=== PATIENT | male | born 1975 | race Two or more races ===

== ENCOUNTER 2021-07-11 14:25 | Emergency (ER) | payer OTHER ==
[~2021-07-11] VITALS: Ht 165.1 cm; Wt 92.1 kg
--- NOTE | 2021-07-11 14:59 | NUR ---
TO ER BED 3. BIB RA 80 FROM [facility]STRUCTION S[facility], PIECE OF METAL FELL ON HIS HEAD,NO LOC C/O DIZZINESS AND PAIN. PT IS A&OX4, ATTACHED TO MONITOR, VITALS ARE STABLE. AWAITING MD ORDERS.
[2021-07-11] MEDS ORDERED: ACETAMINOPHEN ES 500 MG TABLET ONE (15:09)
[2021-07-11] MEDS ORDERED: ACETAMINOPHEN ES 500 MG TABLET PO ONE (15:30)
[2021-07-11] MEDS ORDERED: IBUP-1957 PO (16:04)
[2021-07-11] MEDS ORDERED: MECLIZINE HCL 25 MG TABLET ONE (16:24)
[2021-07-11] MEDS ORDERED: MECLIZINE HCL 25 MG TABLET PO ONE (16:30)
[2021-07-11] MEDS ORDERED: ONDANSETRON 4 MG TAB.RAPDIS ONE (16:40)
--- NOTE | 2021-07-11 16:48 | NUR ---
Patient discharged to home in stable condition. Written and verbal after care instructions given. Patient verbalizes understanding of instruction.IV removed. Catheter intact and site benign. Pressure and 4x4 applied to site. No bleeding noted.
[2021-07-11 16:49] VITALS: BP 132/74
== END 2021-07-11 16:49 | disposition home or self-care (01) ==
LOC: ER 14:28
DX: S09.90XA Unspecified injury of head, initial encounter (principal); I10 Essential (primary) hypertension; Z60.2 Problems related to living alone; Z79.899 Other long term (current) drug therapy; X58.XXXA Exposure to other specified factors, initial encounter; Y93.89 Activity, other specified; Y92.69 Other specified industrial and construction area as the place of occurrence of the external cause; Y99.8 Other external cause status
CPT/HCPCS: 70450; 72125; 99284; J8597; Q0162

== ENCOUNTER 2021-07-16 08:53 | Emergency (ER) | payer OTHER ==
[~2021-07-16] VITALS: Ht 170.2 cm; Wt 93.0 kg
[~2021-07-16 08:53] MED LIST: IBUP-1957 PO
[2021-07-16 09:10] VITALS: BP 152/78
[2021-07-16] MEDS ORDERED: ONDANSETRON 4 MG TAB.RAPDIS ONE (09:29)
[2021-07-16] MEDS ORDERED: ONDANSETRON 4 MG TAB.RAPDIS SL ONE (09:30)
--- NOTE | 2021-07-16 09:30 | NUR ---
Foot soaked and cleaned by patient.
[2021-07-16 09:41] LABS: BASOPHILS % (AUTO) 0.4 % (0.0-2.0); EOSINOPHILS % (AUTO) 0.5 % (0.0-6.0); HEMATOCRIT 51 % (39-51); HEMOGLOBIN 17.4 g/dL (13.5-17.5); LYMPHOCYTES % (AUTO) 19.3 % (20.0-44.0); MEAN CORPUSCULAR HGB CONC 35 g/dl (31.0-36.0); MEAN CORPUSCULAR VOLUME 88 fL (80-96); MONOCYTES # (AUTO) 0.4 K/uL (0.1-1.30); MONOCYTES % (AUTO) 7.1 % (2.0-12.0); NEUTROPHILS # (AUTO) 3.9 K/uL (1.8-8.9); NEUTROPHILS % (AUTO) 72.7 % (43.0-81.0); PLATELET COUNT (AUTO) 208 K/uL (150-450); RED BLOOD CELL COUNT(AUTO) 5.77 MIL/uL (4.5-6.0); WHITE BLOOD COUNT (AUTO) 5.4 K/uL (4.3-11.0)
[2021-07-16 09:52] LABS: CALCIUM, SERUM 8.6 mg/dL (8.5-10.1); CREATININE 0.8 mg/dL (0.6-1.3); POTASSIUM 3.5 mmol/L (3.5-5.1)
[2021-07-16 09:57] LABS: ALBUMIN 4.1 g/dL (3.4-5.0); BILIRUBIN,DIRECT 0.1 mg/dL (0.0-0.2); BILIRUBIN,TOTAL 0.4 mg/dL (0.2-1.0); TOTAL PROTEIN, SERUM 7.6 g/dL (6.4-8.2)
--- NOTE | 2021-07-16 10:06 | NUR ---
Refusing Placement opts to go back to previous living condition. Patient discharged to home in stable condition. Written and verbal after care instructions given. refused to sign ACI
[2021-07-16] MEDS ORDERED: ONDA4TAB5 PO (10:16)
== END 2021-07-16 10:05 | disposition home or self-care (01) ==
LOC: ER 08:55
DX: S06.0X9A Concussion with loss of consciousness of unspecified duration, initial encounter (principal); R11.0 Nausea; I10 Essential (primary) hypertension; Z60.2 Problems related to living alone; Z79.899 Other long term (current) drug therapy; X58.XXXA Exposure to other specified factors, initial encounter; Y93.89 Activity, other specified; Y92.89 Other specified places as the place of occurrence of the external cause; Y99.8 Other external cause status
CPT/HCPCS: 36415; 80048; 80076; 83690; 85025; 99283; Q0162